=== PATIENT | male | born 1975 | race Caucasian/White ===

== ENCOUNTER 2017-01-07 10:48 | Emergency (ER) | payer SELFPAY ==
[~2017-01-07] VITALS: Ht 177.8 cm; Wt 90.9 kg
[2017-01-07 12:26] VITALS: BP 128/82
== END 2017-01-07 12:48 | disposition home or self-care (01) ==
LOC: EMS 10:49
DX: H00.011 Hordeolum externum right upper eyelid (principal); L08.9 Local infection of the skin and subcutaneous tissue, unspecified; F17.210 Nicotine dependence, cigarettes, uncomplicated
CPT/HCPCS: 99283